=== PATIENT | male | born 1985 | race African-American/Black ===

== ENCOUNTER 2022-12-21 21:04 | Emergency (ER) | payer MEDICAID ==
[~2022-12-21] VITALS: Ht 167.6 cm; Wt 67.9 kg
[2022-12-21 21:22] VITALS: BP 130/77; PULSE 64; RESP 16; TEMP 98.6; O2SAT 97
== END 2022-12-22 00:22 | disposition left against medical advice (07) ==
LOC: ER 21:16
DX: R09.A2 Foreign body sensation, throat (principal); J45.909 Unspecified asthma, uncomplicated; Z88.0 Allergy status to penicillin
CPT/HCPCS: 99281